=== PATIENT | male | born 1955 ===

== ENCOUNTER 2021-09-03 11:36 | Inpatient (IN) ==
[2021-09-03] MEDS ORDERED: Isovue-370 500 ML BOTTLE IVP ONE (12:12)
[2021-09-03 12:24] LABS: Basophils # 0.1 K/mcL (0.0-0.2); Basophils % 0.3 %; Eosinophils # 0.1 K/mcL (0.0-0.6); Eosinophils % 0.6 %; Hemoglobin 16.1 g/dL (12.9-16.9); Immature Granulocytes % 1.4 % (0-4); Lymphocytes # 0.7 K/mcL (0.6-4.6); Mean Corpuscular HGB Conc 33.5 g/dL (31.6-35.5); Mean Corpuscular Hemoglobin 28.1 pg (28.0-33.3); Mean Corpuscular Volume 83.8 fL (83.0-100.0); Mean Platelet Volume 10.6 fL (9.4-12.4); Monocytes # 0.8 K/mcL (0.0-1.3); Monocytes % 5.7 %; Neutrophils # 12.9 K/mcL (1.6-8.9); Platelet Count 366 K/mcL (140-400); Red Blood Count 5.73 M/mcL (4.19-5.50); Red Cell Distribution Width 13.8 % (11.5-14.5); White Blood Count 14.8 K/mcL (4.3-11.1)
[2021-09-03 12:30] LABS: Bacteria,Urine Few per hpf (None-Few); Bilirubin,Urine Negative (Negative); Blood,Urine Trace (Negative); Clarity,Urine Clear (Clear); Color,Urine Yellow (Yellow); Glucose,Urine (UA) Normal (Normal); Ketones,Urine 10 mg/dL (Negative); Leukocyte Esterase,Urine Negative (Negative); Nitrite,Urine Negative (Negative); Protein,Urine 70 mg/dL (Neg-Trace); RBC,Urine 0-3 per hpf (0-3); Specific Gravity,Urine 1.028 (1.010-1.025); Squamous Epithelial Cell,Urine Few per hpf (None-Few); Urobilinogen,Urine Normal (Normal)
[2021-09-03 14:58] LABS: Alanine Aminotransferase 42 Units/L (7-52); Albumin 3.3 g/dL (3.5-5.7); Alkaline Phosphatase 70 Units/L (34-104); Aspartate Amino Transferase 59 Units/L (13-39); BUN/Creatinine Ratio 26 (6-26); Bilirubin,Direct 0.4 mg/dL (0.0-0.2); Bilirubin,Indirect 0.7 mg/dL (0.0-1.0); Bilirubin,Total 1.1 mg/dL (0.3-1.0); Blood Urea Nitrogen 21 mg/dL (8-23); Calcium 8.6 mg/dL (8.6-10.3); Carbon Dioxide 18 mEq/L (23-29); Chloride 100 mEq/L (98-107); Globulin 3.4 g/dL (2.4-3.5); Glucose 100 mg/dL (70-105); Osmolality,Calculated 281 (280-300); Potassium 3.9 mEq/L (3.5-5.1); Sodium 134 mEq/L (136-145); Total Protein 6.7 g/dL (6.4-8.9); Troponin I < 0.03 ng/mL (< 0.04); eGFR For African Americans > 60 (> 60); eGFR For Non-African Americans > 60 (> 60)
[2021-09-03 15:04] LABS: VBG HCO3 23 mEq/L (21-27); VBG PCO2 32 mmHg (41-51); VBG PH 7.47 pH Units (7.32-7.42); VBG PO2 130 mmHg (25-50)
[2021-09-03] MEDS ORDERED: Furosemide 20 MG/2 ML VIAL IVP ONE (16:00)
[2021-09-03] MEDS ORDERED: Acetaminophen 325 MG TABLET PO PRN (17:04)
[2021-09-03] MEDS ORDERED: Mag Hydrox/Al Hydrox/Simeth 30 ML UDC PO PRN (17:04)
[2021-09-03] MEDS ORDERED: Ondansetron 4 MG/2 ML VIAL IVP PRN (17:04)
[2021-09-03] MEDS ORDERED: Naloxone 0.4 MG/ML INJ IVP PRN (17:04)
[2021-09-03] MEDS ORDERED: *HR* HYDROcodone/Acet 5/325 mg TABLET PO PRN (17:04)
[2021-09-03] MEDS ORDERED: Perflutren Lipid Microsphere 1.3 ML in 0.9 % Sodium Chloride 8.7 ML IVP PRN (17:18)
[2021-09-03 17:58] LABS: Lactate Dehydrogenase 481 Units/L (140-271)
[2021-09-03] MEDS: Azithromycin 500 MG in 0.9 % Sodium Chloride 250 ML IVPB SCH (19:46)
[2021-09-04 03:28] LABS: Basophils % 0.3 %; Hematocrit 45.5 % (37.5-50.1); Hemoglobin 15.4 g/dL (12.9-16.9); Immature Granulocytes % 1.8 % (0-4); Lymphocytes # 0.8 K/mcL (0.6-4.6); Lymphocytes % 6.9 %; Mean Corpuscular HGB Conc 33.8 g/dL (31.6-35.5); Mean Corpuscular Hemoglobin 28.2 pg (28.0-33.3); Mean Corpuscular Volume 83.2 fL (83.0-100.0); Mean Platelet Volume 10.9 fL (9.4-12.4); Monocytes # 0.6 K/mcL (0.0-1.3); Monocytes % 4.6 %; Neutrophils # 10.3 K/mcL (1.6-8.9); Platelet Count 375 K/mcL (140-400); Red Blood Count 5.47 M/mcL (4.19-5.50); Red Cell Distribution Width 13.7 % (11.5-14.5); Segmented Neutrophils % 86.4 %; White Blood Count 11.9 K/mcL (4.3-11.1)
[2021-09-04 04:05] LABS: Alanine Aminotransferase 38 Units/L (7-52); Albumin 3.2 g/dL (3.5-5.7); Albumin/Globulin Ratio 0.9 (1.1-2.2); Alkaline Phosphatase 78 Units/L (34-104); Aspartate Amino Transferase 41 Units/L (13-39); BUN/Creatinine Ratio 34 (6-26); Bilirubin,Total 0.6 mg/dL (0.3-1.0); Blood Urea Nitrogen 27 mg/dL (8-23); Calcium 8.9 mg/dL (8.6-10.3); Carbon Dioxide 23 mEq/L (23-29); Chloride 101 mEq/L (98-107); Globulin 3.7 g/dL (2.4-3.5); Glucose 138 mg/dL (70-105); Magnesium 2.7 mg/dL (1.6-2.6); Osmolality,Calculated 289 (280-300); Potassium 3.8 mEq/L (3.5-5.1); Sodium 136 mEq/L (136-145); Total Protein 6.9 g/dL (6.4-8.9); eGFR For African Americans > 60 (> 60); eGFR For Non-African Americans > 60 (> 60)
[2021-09-04] MEDS: *HR* Enoxaparin 40 MG/0.4 ML SYRINGE SQ SCH (05:48)
[2021-09-04] MEDS: lisinopriL 20 MG TABLET PO SCH (07:50)
[2021-09-04] MEDS: Furosemide 20 MG/2 ML VIAL IVP SCH ×3 (07:50→17:36)
[2021-09-04] MEDS: cefTRIAXone 1,000 MG in Water for inj. (sterile) 10 ML IVP SCH (07:51)
[2021-09-04] MEDS ORDERED: Ipratropium/Albuterol Neb 3 ML IH PRN (10:40)
[2021-09-04] MEDS: Azithromycin 500 MG in 0.9 % Sodium Chloride 250 ML IVPB SCH (17:10)
[2021-09-05] MEDS: *HR* Enoxaparin 40 MG/0.4 ML SYRINGE SQ SCH (05:23)
[2021-09-05] MEDS: lisinopriL 20 MG TABLET PO SCH (07:28)
[2021-09-05] MEDS: cefTRIAXone 1,000 MG in Water for inj. (sterile) 10 ML IVP SCH (07:29)
[2021-09-05] MEDS: Furosemide 20 MG/2 ML VIAL IVP SCH ×2 (07:31→15:37)
[2021-09-05 12:14] LABS: Hematocrit 45.2 % (37.5-50.1); Hemoglobin 15.3 g/dL (12.9-16.9); Mean Corpuscular HGB Conc 33.8 g/dL (31.6-35.5); Mean Corpuscular Hemoglobin 28.5 pg (28.0-33.3); Mean Corpuscular Volume 84.3 fL (83.0-100.0); Mean Platelet Volume 10.4 fL (9.4-12.4); Platelet Count 616 K/mcL (140-400); Red Blood Count 5.36 M/mcL (4.19-5.50)
[2021-09-05 12:22] LABS: White Blood Count 24.4 K/mcL (4.3-11.1)
[2021-09-05 13:10] LABS: Neutrophils # 23.4 K/mcL (1.6-8.9)
[2021-09-05 13:14] LABS: Platelet Estimate Increased (Normal)
[2021-09-05 13:27] LABS: BUN/Creatinine Ratio 47 (6-26); Blood Urea Nitrogen 44 mg/dL (8-23); Calcium 9.2 mg/dL (8.6-10.3); Carbon Dioxide 21 mEq/L (23-29); Chloride 103 mEq/L (98-107); Glucose 170 mg/dL (70-105); Osmolality,Calculated 295 (280-300); Potassium 4.1 mEq/L (3.5-5.1); Sodium 135 mEq/L (136-145); eGFR For African Americans > 60 (> 60); eGFR For Non-African Americans > 60 (> 60)
[2021-09-05] MEDS: Azithromycin 500 MG in 0.9 % Sodium Chloride 250 ML IVPB SCH (17:47)
[2021-09-06] MEDS: *HR* Enoxaparin 40 MG/0.4 ML SYRINGE SQ SCH (06:31)
[2021-09-06] MEDS: cefTRIAXone 1,000 MG in Water for inj. (sterile) 10 ML IVP SCH (07:55)
[2021-09-06] MEDS: lisinopriL 20 MG TABLET PO SCH (08:11)
[2021-09-06 10:17] LABS: Basophils # 0.1 K/mcL (0.0-0.2); Basophils % 0.5 %; Eosinophils % 0.1 %; Hematocrit 46.8 % (37.5-50.1); Hemoglobin 15.5 g/dL (12.9-16.9); Immature Granulocytes % 2.3 % (0-4); Lymphocytes # 0.9 K/mcL (0.6-4.6); Lymphocytes % 4.4 %; Mean Corpuscular HGB Conc 33.1 g/dL (31.6-35.5); Mean Corpuscular Volume 84.6 fL (83.0-100.0); Mean Platelet Volume 10.6 fL (9.4-12.4); Monocytes # 1.2 K/mcL (0.0-1.3); Monocytes % 5.8 %; Neutrophils # 17.3 K/mcL (1.6-8.9); Platelet Count 593 K/mcL (140-400); Red Blood Count 5.53 M/mcL (4.19-5.50); Red Cell Distribution Width 14.1 % (11.5-14.5); Segmented Neutrophils % 86.9 %; White Blood Count 19.9 K/mcL (4.3-11.1)
[2021-09-06 10:29] LABS: BUN/Creatinine Ratio 47 (6-26); Blood Urea Nitrogen 37 mg/dL (8-23); Calcium 9.1 mg/dL (8.6-10.3); Carbon Dioxide 24 mEq/L (23-29); Chloride 104 mEq/L (98-107); Glucose 136 mg/dL (70-105); Osmolality,Calculated 295 (280-300); Potassium 4.1 mEq/L (3.5-5.1); Sodium 137 mEq/L (136-145); eGFR For African Americans > 60 (> 60); eGFR For Non-African Americans > 60 (> 60)
[2021-09-06 10:37] VITALS: BP 120/69; PULSE 82; TEMP 97.8
[2021-09-06 12:31] VITALS: O2SAT 96
[2021-09-06 15:13] LABS: C-Reactive Protein 105 mg/L (Less than 10)
== END 2021-09-06 14:41 | disposition home or self-care (01) | DRG 177 ==
LOC: 3BNU 11:36 → EMEROOARM 11:36 → SUATTDRO 17:32 → 3BNU 18:23
PROVIDERS: ADMIT Internal Medicine; ATTEND Internal Medicine